=== PATIENT | female | born 1975 | race Caucasian/White ===

== ENCOUNTER 2018-11-04 06:11 | Observation (INO) | payer OTHER ==
[2018-11-04] MEDS ORDERED: NACL 0.9% 3 ML SYG IV (07:30)
[2018-11-04] MEDS ORDERED: ACETAMINOPHEN 325 MG TAB PO (07:30)
[2018-11-04] MEDS ORDERED: LABETALOL HCL 20MG INJ IV (07:30)
[2018-11-04] MEDS ORDERED: ONDANSETRON 4 MG INJ IV (07:30)
[2018-11-04] MEDS ORDERED: DOCUSATE SODIUM 100 MG CAP PO (07:30)
[2018-11-04 08:36] LABS: ADD MAN DIFF? NO
[2018-11-04] MEDS: ASPIRIN 81 MG TAB PO (08:40)
[2018-11-04 08:42] LABS: BASOPHILS % 0.2 % (0.0-2.0); HEMATOCRIT 36.2 % (37.0-47.0); HEMOGLOBIN 11.2 g/dl (12.0-16.0); LYMPHOCYTES # 2.3 10^3/ul (0.8-2.9); LYMPHOCYTES % 12.8 % (15.0-51.0); MEAN CORPUSCULAR HGB CONC 30.9 g/dl (32.0-37.0); MEAN PLATELET VOLUME 10.3 fl (7.4-10.4); MONOCYTE # 0.6 10^3/ul (0.3-0.9); MONOCYTES % 3.5 % (0.0-11.0); NEUTROPHIL # 14.8 10^3/ul (1.6-7.5); NEUTROPHILS % 82.8 % (39.0-77.0); PLATELET COUNT 395 10^3/UL (140-415); RED BLOOD COUNT 4.31 10^6/ul (4.20-5.40); RED CELL DISTRIBUTION WIDTH 14.4 % (11.5-14.5)
[2018-11-04 08:42] LABS: WHITE BLOOD COUNT 17.9 10^3/ul (4.8-10.8)
[2018-11-04 08:53] LABS: HEMOGLOBIN A1C 5.4 % (0-5.9)
[2018-11-04 09:00] LABS: ALANINE AMINOTRANSFERASE 28 IU/L (13-69); ALBUMIN 4.3 g/dl (3.3-4.9); ALBUMIN/GLOBULIN RATIO 1.02; ALKALINE PHOSPHATASE 86 IU/L (42-121); ANION GAP 7 (5-13); ASPARTATE AMINO TRANSFERASE 26 IU/L (15-46); BILIRUBIN,INDIRECT 0.8 mg/dl (0-1.1); BILIRUBIN,TOTAL 0.8 mg/dl (0.2-1.3); BLOOD UREA NITROGEN 15 mg/dl (7-20); CALCIUM 9.6 mg/dl (8.4-10.2); CARBON DIOXIDE 25 mmol/L (21-31); CHLORIDE 108 mmol/L (97-110); CHOL/HDL RATIO 2.9 RATIO; CHOLESTEROL 120 mg/dl (100-200); CREATININE 0.61 mg/dl (0.44-1.00); Estimated GFR > 60 mL/min (>60); GLUCOSE 113 mg/dl (70-220); HDL CHOLESTEROL 41 mg/dl (34-88); LDL CHOLESTEROL,CALCULATED 70 mg/dl; MAGNESIUM 2.2 mg/dl (1.7-2.5); POTASSIUM 4.3 mmol/L (3.5-5.1); SODIUM 140 mmol/L (135-144); TOTAL PROTEIN 8.5 g/dl (6.1-8.1); TRIGLYCERIDES 47 mg/dl (0-149)
[2018-11-04 09:32] LABS: IRON 75 ug/dl (35-150)
[2018-11-04 09:42] LABS: % IRON SATURATION 15 % SAT (22-52); TOTAL IRON BINDING CAPACITY 485 ug/dl (241-421)
[2018-11-04 10:04] LABS: HEPATITIS B SURFACE ANTIGEN NEGATIVE (NEGATIVE)
[2018-11-04 10:21] LABS: HEPATITIS C VIRAL ANTIBODY NEGATIVE (NEGATIVE)
[2018-11-04] MEDS: LISINOPRIL 10 MG TAB PO (11:06)
[2018-11-04] MEDS: CHOLECALCIFEROL 2,000 UNIT CAP PO (11:06)
[2018-11-04] MEDS: predniSONE 20 MG TAB PO (11:07)
[2018-11-04] MEDS: ARTIFICIAL TEARS 15 ML OPH BOTH EYES ×3 (13:43→20:32)
[2018-11-04] MEDS: SOD FERRIC GLUC COMPLX 125 MG in SOD CHLORIDE 0.9% 100 ML IVPB (13:44)
[2018-11-04 15:51] LABS: RAPID PLASMA REAGIN NONREACTIVE (NR)
[2018-11-04] MEDS: IOHEXOL 100 ML (20:21)
[2018-11-04] MEDS: SOD CHLORIDE 0.9% 100 ML (20:21)
[2018-11-04] MEDS: ATORVASTATIN 80 MG TAB PO (20:32)
[2018-11-05] MEDS: BISACODYL (EC) 5 MG TAB PO (00:07)
[2018-11-05] MEDS: ARTIFICIAL TEARS 15 ML OPH BOTH EYES (08:18)
[2018-11-05] MEDS: CHOLECALCIFEROL 2,000 UNIT CAP PO (08:19)
[2018-11-05] MEDS: predniSONE 20 MG TAB PO (08:19)
[2018-11-05] MEDS: ASPIRIN 81 MG TAB PO (08:19)
[2018-11-05] MEDS: LISINOPRIL 10 MG TAB PO (08:20)
== END 2018-11-05 12:57 | disposition home or self-care (01) ==
LOC: TEL 06:11
DX: I63.9 Cerebral infarction, unspecified (principal); G43.909 Migraine, unspecified, not intractable, without status migrainosus; E66.9 Obesity, unspecified; Z68.35 Body mass index [BMI] 35.0-35.9, adult; G51.0 Bell's palsy; D50.9 Iron deficiency anemia, unspecified
CPT/HCPCS: 70496; 70498; 70544; 70549; 70551; 80053; 80061; 83036; 83540; 83735; 84443; 84703; 85025; 86592; 86803; 87340; 92610; 93306; 97161; 99217; G0378

== ENCOUNTER 2018-11-09 17:03 | Emergency (ER) | payer OTHER ==
[2018-11-09 17:29] LABS: ADD MAN DIFF? NO
[2018-11-09 17:35] LABS: BASOPHILS % 0.2 % (0.0-2.0); EOSINOPHILS # 0.2 10^3/ul (0.0-0.5); EOSINOPHILS % 1.6 % (0.0-7.0); HEMOGLOBIN 11.5 g/dl (12.0-16.0); LYMPHOCYTES # 4.5 10^3/ul (0.8-2.9); LYMPHOCYTES % 30.8 % (15.0-51.0); MEAN CORPUSCULAR HEMOGLOBIN 26.4 pg (29.0-33.0); MEAN CORPUSCULAR HGB CONC 31.9 g/dl (32.0-37.0); MEAN CORPUSCULAR VOLUME 82.6 fl (82.0-101.0); MEAN PLATELET VOLUME 9.7 fl (7.4-10.4); MONOCYTE # 0.8 10^3/ul (0.3-0.9); MONOCYTES % 5.3 % (0.0-11.0); NEUTROPHILS % 61.6 % (39.0-77.0); PLATELET COUNT 417 10^3/UL (140-415); RED BLOOD COUNT 4.36 10^6/ul (4.20-5.40); RED CELL DISTRIBUTION WIDTH 14.9 % (11.5-14.5)
[2018-11-09 17:35] LABS: WHITE BLOOD COUNT 14.6 10^3/ul (4.8-10.8)
[2018-11-09 17:42] LABS: HEMOGLOBIN A1C 5.4 % (0-5.9)
[2018-11-09 17:50] LABS: INR 0.95; PARTIAL THROMBOPLASTIN TIME 29.2 Sec (23.0-35.0); PROTIME 12.8 Sec (11.9-14.9)
[2018-11-09] MEDS: ONDANSETRON 4 MG INJ IV (17:50)
[2018-11-09] MEDS: morphine 4 MG/ML VIAL IV (17:50)
[2018-11-09 17:52] LABS: ANION GAP 10 (5-13); BLOOD UREA NITROGEN 11 mg/dl (7-20); CALCIUM 9.4 mg/dl (8.4-10.2); CARBON DIOXIDE 24 mmol/L (21-31); CHLORIDE 104 mmol/L (97-110); CHOL/HDL RATIO 2.8 RATIO; CHOLESTEROL 89 mg/dl (100-200); CREATININE 0.77 mg/dl (0.44-1.00); Estimated GFR > 60 mL/min (>60); GLUCOSE 109 mg/dl (70-220); HDL CHOLESTEROL 31 mg/dl (34-88); LDL CHOLESTEROL,CALCULATED 38 mg/dl; POTASSIUM 3.8 mmol/L (3.5-5.1); SODIUM 138 mmol/L (135-144); TRIGLYCERIDES 101 mg/dl (0-149)
[2018-11-09 18:04] LABS: TROPONIN-I < 0.012 ng/ml (0.000-0.120)
== END 2018-11-09 18:43 | disposition home or self-care (01) ==
LOC: E/R 17:03
DX: I63.9 Cerebral infarction, unspecified (principal); I10 Essential (primary) hypertension; Z79.82 Long term (current) use of aspirin
CPT/HCPCS: 36415; 70450; 71045; 80048; 80061; 83036; 84484; 85025; 85610; 85730; 93005; 96374; 96375; 99285-25

== ENCOUNTER 2018-11-17 02:05 | Emergency (ER) | payer OTHER ==
[2018-11-17] MEDS: SOD CHLORIDE 0.9% 1,000 ML IV (02:55)
[2018-11-17] MEDS: METOCLOPRAMIDE 10 MG INJ IV (02:55)
== END 2018-11-17 03:45 | disposition left against medical advice (07) ==
LOC: E/R 02:05
DX: R51 Headache (principal); I10 Essential (primary) hypertension; R40.2142 Coma scale, eyes open, spontaneous, at arrival to emergency department; R40.2362 Coma scale, best motor response, obeys commands, at arrival to emergency department; R40.2252 Coma scale, best verbal response, oriented, at arrival to emergency department; Z79.82 Long term (current) use of aspirin; Z86.73 Personal history of transient ischemic attack (TIA), and cerebral infarction without residual deficits
CPT/HCPCS: 70450; 96374; 99285-25

== ENCOUNTER 2018-11-20 03:50 | Emergency (ER) | payer OTHER | END 2018-11-20 04:47 | disposition home or self-care (01) | LOC: E/R 03:50 | DX: K59.01 Slow transit constipation (principal); I10 Essential (primary) hypertension; Z86.73 Personal history of transient ischemic attack (TIA), and cerebral infarction without residual deficits; Z79.82 Long term (current) use of aspirin | CPT/HCPCS: 99282; Z7502 ==